=== PATIENT | female | born 1940 | race Caucasian/White ===

== ENCOUNTER → 2017-09-22 | Outpatient (CLI) | payer BC ==
[~2017-09-22] MED LIST: ALBUTEROL SULFAT4 MG; CARAFATE 1 GM TA1 G1 PO; CIPROFLOXACIN500 M1 PO; COMPAZINE10 MG PO; COZAAR 50 MG TA50 M2 PO; DETROL1 MG PO; DICLOFENAC SODI75 MG PO; EFFEXOR XR75 MG PO; EFFEXOR75 MG PO; ELIQUIS5 MG PO; FISHOIL PO; FLAGYL500 MG PO; GLUCOSAMINE PO; HYDROCHLOROTHIA25 M2 PO; IBUPROFEN 400400 M1 PO; KEFLEX500 MG PO; LEVOTHYROXIN0.025 MG PO; LOSARTAN-HCTZ1 EAC1 PO; MEDROLDOSEPACK PO; MOBIC15 MG PO; MULTIVITAMINS PO; NEXIUM40 MG; NORCO 5-325 TA1 EACH PO; OXYCODONE HCL10 MG PO; PERCOCET PO; PHENERGAN 25 MG25 M1 PO; PREDNISONE 10 M10 MG PO; PREDNISONE PO; PROTONIX 20 MG20 M1 PO; RED YEAST RICE600 MG PO; SYNTHROID75 MCG PO; TRANSDERM-SCOP1 EACH TRANSDERM; ULTRAM 50MG TAB50 MG PO; VESICARE PO; VESICARE10 M1 PO; ZOVIRAX30 GM TOP
[2017-09-22 16:07] LABS: CREATININE 1.2 mg/dL (0.6-1.3)
== END ==
LOC: M.LAB 15:42 → M.MRI 17:30
PROVIDERS: Nurse Practitioner Family
DX: M47.26 Other spondylosis with radiculopathy, lumbar region (principal); M51.16 Intervertebral disc disorders with radiculopathy, lumbar region; M46.06 Spinal enthesopathy, lumbar region; M48.061 Spinal stenosis, lumbar region without neurogenic claudication; Z85.9 Personal history of malignant neoplasm, unspecified

== ENCOUNTER → 2017-10-06 | Outpatient (CLI) | payer BC, OTHER ==
--- NOTE | 2017-10-12 16:41 | PAINCON ---
[address] [address] PAIN MANAGEMENT CONSULTATION Name: ABELARDO BAEZ Room: [facility] [place] [id number] Admission: 10/06/17 Attend Phys: Vinod Vanessa MD Discharge: Date of : 36 Report #: [id number] THIS REPORT FOR: //name// CC: Vinod Abdalla DATE OF SERVICE: 10/06/2017 CHIEF COMPLAINT: "Pain in my back. I recently had treatment for esophageal cancer." FOLLOWUP HISTORY: The patient is a 77-year-old female who has been referred to the pain clinic for evaluation of back pain. The patient states that she is noticing some worsening of her pain. It has gotten significantly worse over the last week. She was seen in the hospital. She was treated with chemotherapy and radiation. She was told that she has esophageal cancer. States that it was found because she was feeling sick. It was an accidental finding per her report. Notes that she has been "dealing with this cancer all summer long." Notes that it has taken a lot of out of her emotionally as well as physically. She has lost quite a bit of weight. Notes that pain is problematic when she is standing and doing activities of daily living such as folding clothes, doing dishes, laundry. Notes that the pain sometimes improves if she sits and rests her back up against the chair. Denies any trauma, denies any impact to the area. Denies any heavy lifting. Has not had shingles in that area. The patient states she has been given oxycodone. She has taken 5 mg tablets. When the pain is problematic, she has taken one. She has not taken more than one tablet at a time. She feels that the pain can rise to the level of an 8 to 10. Today, she feels it is 0.5. She is aware that it is present. Once the pain gets started, it can last for a number of hours. Difficult to decrease it with one oxycodone tablet. ALLERGIES: MIDAZOLAM. CURRENT MEDICATIONS: Acyclovir ointment, Eliquis 5 mg b.i.d., Hyzaar 100/25, oxycodone 5 mg tablets, VESIcare 10 mg, Effexor XR 75 mg. PAST MEDICAL HISTORY: Diabetes, hypertension, thyroid disease, joint disease/arthritis, esophageal cancer. PAST SURGICAL HISTORY: Appendectomy in 1958, oophorectomy at age 17, hysterectomy in 1976, esophagus surgery 08/27/2017. SOCIAL HISTORY: She is retired. REVIEW OF SYSTEMS: Generally good health, prior to this has noticed a significant weight loss as a result of this illness, chronic cough. Otherwise, [place] [address] PAIN MANAGEMENT CONSULTATION Name: ABELARDO BAEZ Room: [facility]#: [id number] Admission: 10/06/17 Attend Phys: Vinod Vanessa MD Discharge: Date of : 38 Report #: [id number] unremarkable. LABORATORY DATA: MRI of the lumbar spine dated 09/22/2017. 1. L3-L4, there is no significant disk bulge or protrusion identified. There is no significant central spinal canal or neural foraminal stenosis. There is quym-mg-emdvdntz bilateral facet arthrosis. 2. L4-L5, there is minimal posterior disk bulge. There is no significant central spinal canal stenosis. There is qwzedwpa-cf-pndtdu/bilateral facet arthrosis and spurring. There is minimal foraminal disk bulging. There is moderate medial bilateral neural foraminal stenosis due to facet spurring and foramen disk bulging. 3. L5-S1, there is a mild diffuse disk bulge. There is severe right and flbazrub-oa-zegxem left facet arthrosis. There is foraminal disk bulging and facet spurring resulting in tercipez-ko-yxjrxv medial bilateral neural foraminal stenosis with effacement of the undersurface of the exiting L5 nerve roots. 4. T12-L1, there is a mild diffuse disk bulge. There is no significant central spinal canal or neural foraminal stenosis. 5. At L1-L2, there is no significant disk bulge or protrusion identified. There is no significant central spinal canal or neural foraminal stenosis. PAIN CLINIC ASSESSMENT: 1. Osteoarthritis. The patient states that she is not being treated for osteoarthritis, but MRI shows some arthritic changes in the low back area. 2. Height 5 feet 2 inches, weight 126 pounds, BMI is 22.8. 3. Vital signs: Blood pressure is 124/65, heart rate 107, respiratory rate 16, room air saturation 96%, temperature 98.4, pain 0.5/10 depending on the activity, can rise to a level of 10 when it is problematic. 4. Fall risk. The patient has not fallen in the last 3 months. 5. Blood thinner. The patient is on a blood thinning medication Eliquis. 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 6. Hypertension. The patient is being treated for hypertension. 7. Opioid therapy greater than 6 weeks. The patient is not on opioid therapy. 8. Risk assessment tool. 9. Functional assessment tool. 10. Recreational drug use. The patient denies use of recreational drugs. 11. Tobacco: The patient denies use of tobacco. 12. Alcohol: The patient denies use of alcoholic beverages. PHYSICAL EXAMINATION: GENERAL: The patient is a well-developed, well-nourished white female. Appears her stated age. She is alert and oriented x 3. Speech is fluent. HEENT: Normocephalic, atraumatic. Extraocular muscles intact. Sclerae nonicteric. Mucous membranes are moist. No signs of alopecia. NECK: Good range of motion without bruits or adenopathy. HEART: Regular rate. S1, S2. LUNGS: Clear to auscultation without rhonchi [place] [address] PAIN MANAGEMENT CONSULTATION Name: SASHAABELARDO Room: [facility]#: [id number] Admission: 10/06/17 Attend Phys: Vinod Vanessa MD Discharge: Date of : 38 Report #: [id number] ABDOMEN: Nontender. MUSCULOSKELETAL: Without significant scoliosis, kyphosis or lordosis. Palpation in the area of the patient's bra line at approximately T8 through T10, the patient has some soreness and some irritation to the right paraspinous muscle palpation. There is some midline discomfort as well. Pain radiates out approximately 4-5 inches around the thoracic area. No signs of outbreak or rashes noted, no signs of trauma. Upper extremity muscle strength is judged to be 4+/5 in the upper muscle strain. Lower muscle strength is judged to be 5-/5 in the lower extremities. Jean sign is negative. The patient is able to stand up on her toes and walk back on her heels, is not having any radicular pain at this juncture. IMPRESSION: 1. Cancer pain/esophageal cancer status post radiation treatment and chemotherapy with back pain. 2. Diabetes. 3. Hypertension. 4. Thyroid disease. 5. Joint disease/arthritis. 6. Esophageal cancer. RECOMMENDATIONS: We discussed the treatment options with her. Possible complications of an injection into the back with local anesthetic and steroids were reviewed. The patient is having pain, which she rates as 1/2 today. Oftentimes, it can rise to the level of 10. Once it starts it becomes very difficult to combat. The patient took oxycodone. She only took one 5 mg tablet of time. I think oxycodone still has a good medication for this pain. We will give her 10 mg tablets. The patient will take one tablet if her pain starts to become problematic. In 1/2 hour, if her pain continues to be problematic, she will take a second 10 mg tablet and if after one hour, pain continues to be problematic, she can take a third. She will call us in a week and tell us how things are going. She will be given a Medrol Dosepak to take in the interim. May consider using the medication such as gabapentin. Given the possible complications and side effects of these types of medication, we will try to be conservative at this juncture and add additional medications and treatments as needed in the future. We would like to thank you for letting us participate in her care. We hope she continues to improve. <ELECTRONICALLY SIGNED> By: Vinod Vanessa MD 10/12/17 1641 [id number]. Collin Vanessa MD /gerry
== END ==
LOC: M.PC 03:23
DX: M54.5 Low back pain (principal); E11.9 Type 2 diabetes mellitus without complications; I10 Essential (primary) hypertension; C15.9 Malignant neoplasm of esophagus, unspecified; E07.9 Disorder of thyroid, unspecified

== ENCOUNTER 2017-10-16 16:07 | Inpatient (IN) | payer BC ==
[~2017-10-16] VITALS: Ht 157.5 cm; Wt 54.0 kg
--- NOTE | ~2017-10-16 | PROC ---
[address] [address] PROCEDURE REPORT Name: ABELARDO BAEZ Room: [address] IN ..#: [id number] Admission: 10/16/17 Attend Phys: Jess Cox MD Discharge: Date of : 38 Report #: [id number] THIS REPORT FOR: //name// For GI report, please see the Provation report in Perceptive 7 content. By: [id number] Records Staff DEVANTE /ELENA
[~2017-10-16 16:07] MED LIST changes: -CARAFATE 1 GM TA1 G1 PO; -COMPAZINE10 MG PO; -DETROL1 MG PO; -PROTONIX 20 MG20 M1 PO; -SYNTHROID75 MCG PO; -TRANSDERM-SCOP1 EACH TRANSDERM
[2017-10-16 16:08] VITALS: BP 205/94
[2017-10-16] MEDS ORDERED: CARAFATE 1 GM TA1 G1 PO (16:12)
[2017-10-16] MEDS ORDERED: SYNTHROID75 MCG PO (16:13)
[2017-10-16] MEDS ORDERED: DETROL1 MG PO (16:14)
[2017-10-16] MEDS ORDERED: PROTONIX 20 MG20 M1 PO (16:14)
[2017-10-16] MEDS ORDERED: COMPAZINE10 MG PO (16:14)
[2017-10-16 17:06] LABS: HEMATOCRIT 46.5 % (37.0-47.0); HEMOGLOBIN 15.2 gm/dL (12.0-15.0); MCH 28.6 pg (26.0-34.0); MCHC 32.7 g/dL (28.0-37.0); MCV 87.4 fL (80.0-100.0); MPV 6.8 fl. (7.2-11.1); NUCLEATED RBCS 0 /100WBC; PLATELET COUNT* 341 thou/uL (150-400); RBC 5.32 mil/uL (4.20-5.00); RDW-CV 14.9 % (10.5-14.5); WBC 5.9 thou/uL (4.0-11.0)
[2017-10-16 17:12] LABS: ANION GAP 14 mmol/L (7-16); BUN 18 mg/dL (7-18); CHLORIDE 96 mmol/L (98-107); CO2 25 mmol/L (21-32); CREATININE 0.8 mg/dL (0.6-1.3); GLUCOSE 138 mg/dL (70-99); POTASSIUM 3.3 mmol/L (3.5-5.1); SODIUM 135 mmol/L (136-145)
[2017-10-16 17:19] LABS: ALBUMIN 3.2 g/dL (3.4-5.0); ALKALINE PHOSPHATASE 98 U/L (46-116); LIPASE 60 U/L (73-393); SGOT 21 U/L (15-37); SGPT 19 U/L (30-65); TOTAL BILIRUBIN 0.6 mg/dL (<0.1-1.0); TROPONIN-I LEVEL <0.06 ng/mL (<0.06)
[2017-10-16 17:20] LABS: APTT 28.9 Seconds (25.0-31.3); PROTIME 10.6 Seconds (9.20-11.50)
[2017-10-16 17:25] LABS: ABSOLUTE LYMPHOCYTES 0.4 thou/uL (0.8-5.3); ABSOLUTE MONOCYTES 0.5 thou/uL (0.0-1.2); ABSOLUTE NEUTROPHILS 5.1 thou/uL (1.6-8.1); ATYPICAL LYMPHS 1 %; PLATELET ESTIMATE ADEQUATE
--- NOTE | 2017-10-16 18:41 | NUR ---
NINOSKA NOTIFIED UPON PT RETURN FROM CT. PT CONNECTED TO MONITOR AND 2 LITERS OF O2
[2017-10-16 19:04] VITALS: BP 173/89
[2017-10-16 20:25] VITALS: BP 197/91
[2017-10-17 00:42] VITALS: BP 189/87
--- NOTE | 2017-10-17 01:43 | NUR ---
ARRIVED FROM ER ALERT AND ORIENTED X4. DENIED PAIN OR NAUSEA AT THIS TIME. ASSESSMENT CHARTED. ORIENTED TO BED AND BED CONTROLS. CALL LIGHT WITHIN REACH.
[2017-10-17 04:03] LABS: HEMATOCRIT 42.1 % (37.0-47.0); HEMOGLOBIN 13.8 gm/dL (12.0-15.0); MCH 28.5 pg (26.0-34.0); MCHC 32.7 g/dL (28.0-37.0); MCV 87.3 fL (80.0-100.0); MPV 6.7 fl. (7.2-11.1); RBC 4.82 mil/uL (4.20-5.00); RDW-CV 14.5 % (10.5-14.5)
[2017-10-17 04:20] VITALS: BP 187/93
[2017-10-17 05:12] LABS: ALBUMIN 2.8 g/dL (3.4-5.0); CALCIUM 8.3 mg/dL (8.5-10.1); CREATININE 0.7 mg/dL (0.6-1.3); MAGNESIUM 1.5 mg/dL (1.8-2.4); TOTAL BILIRUBIN 0.4 mg/dL (<0.1-1.0); TOTAL PROTEIN 6.4 g/dL (6.4-8.2)
--- NOTE | 2017-10-17 08:01 | NUR ---
ALERT AND ORIENTED X4. DENIED NEED FOR PAIN OR NAUSEA MEDICATION. REMAINS ON O2 AT 2L/NC. UP TO BATHROOM WITH STAND BY ASSIST. CALL LIGHT WITHIN REACH.
[2017-10-17 08:10] VITALS: BP 175/73
[2017-10-17 16:00] VITALS: BP 171/74
--- NOTE | 2017-10-17 18:57 | NUR ---
PT ALERT AND ORIENTED X 4. PT COMPLAINS OF NAUSEA. PT ADMINISTERED PRN IV COMPAZINE. DENIES PAIN. PT HAS IVF @ 100MLS/HR. PT RECEIVED MAGNESIUM 800MG DOSE X 2 PER ELECTROLYTE PROTOCOL. PT UP WITH SBA X 1 WITH WALKER. WILL USE CALL LIGHT FOR ASSISTANCE. CALL LIGHT WITHIN REACH. HOURLY ROUNDS MAINTAINED. NURSING WILL CONTINUE TO MONITOR.
[2017-10-17 19:40] VITALS: BP 195/79
[2017-10-17 23:11] VITALS: BP 162/77
[2017-10-18 04:13] LABS: HEMATOCRIT 43.8 % (37.0-47.0); HEMOGLOBIN 14.3 gm/dL (12.0-15.0); MCH 28.8 pg (26.0-34.0); MCHC 32.8 g/dL (28.0-37.0); MCV 87.8 fL (80.0-100.0); RBC 4.98 mil/uL (4.20-5.00); RDW-CV 14.7 % (10.5-14.5); WBC 6.8 thou/uL (4.0-11.0)
[2017-10-18 04:19] VITALS: BP 194/95
[2017-10-18 04:25] LABS: ALBUMIN 3.1 g/dL (3.4-5.0); CALCIUM 8.5 mg/dL (8.5-10.1); CREATININE 0.7 mg/dL (0.6-1.3); MAGNESIUM 1.6 mg/dL (1.8-2.4); POTASSIUM 3.5 mmol/L (3.5-5.1); TOTAL BILIRUBIN 0.6 mg/dL (<0.1-1.0); TOTAL PROTEIN 7.3 g/dL (6.4-8.2)
--- NOTE | 2017-10-18 05:11 | NUR ---
ASSESSMENT COMPLETE. PT REPORTS NAUSEA, PARTIAL RELIEF FROM PRN NAUSEA MEDICATION. SCOPE PATCH PLACED BEHIND LEFT EAR. PT DENIED PAIN AT BEGINING OF SHIFT, BACK PAIN STARTED AROUND 0400, OXY IR GIVEN WITH RELIEF REPORTED. REPORTS DECREASED APPETITE. PT REPORTS SHE NOTICES NAUSEA WORSENS WITH BACK PAIN. MAG REPLACED PER PROTOCOL. PT IS ON ROOM AIR WITH [place] SATS. IV FLUIDS INFUSING. PT [facility], TURNS SELF IN BED. SEE ASSESSMENT AND VITALS FOR OTHER DETAILS. BED ALARM ON, CALL LIGHT WITHIN REACH. WILL CONTINUE PLAN OF CARE
[2017-10-18 07:45] VITALS: BP 175/89
--- NOTE | 2017-10-18 12:48 | EKG ---
[place] [address] ELECTROCARDIOGRAM REPORT Name: ABELARDO BAEZ Room: [address] ADM IN .R.#: [id number] Admission: 10/16/17 Attend Phys: Jess Cox MD Discharge: Date of : 38 Report #: [id number] THIS REPORT FOR: //name// [facility] ED Test Date: 2017-10-16 Test Time: 16:51:39 Pat Name: ABELARDO BAEZ Department: Room: [facility] Gender: F Administrative Underwriter: ANJEL : 1940 Requested By: Marie Yanez Order Number: [id number] MD: Jerad Erwin Measurements Intervals [place] Rate: 93 P: 42 W[place]: 138 QRS: -44 QRSD: 81 T: 2 QT: 392 QTc: 488 Interpretive Statements Sinus rhythm Probable left atrial enlargement Left anterior fascicular block Borderline prolonged QT interval Compared to ECG 11/04/2010 19:56:31 Left anterior fascicular block now present Sinus tachycardia no longer present Myocardial infarct finding no longer present Electronically Signed On 10-18-2017 12:47:57 CDT by Jerad Erwin [email or web address] <ELECTRONICALLY SIGNED> By: Jerad Erwin MD, FAC 10/18/17 1247 1651 1651 Jerad Erwin MD, [facility] /EPI
--- NOTE | 2017-10-18 14:19 | NUR ---
SPOKE WITH PT. SHE WAS ALERT AND ORIENTED. SHE SAID SHE LIVES ALONE. DOES NOT USE ANY DME. SHE SAID HER FAMILY IS SUPPORTIVE. SHE RECENTLY JUST FINISHED HOME HEALTH SINCE HAVING SURGERY FOR ESOPHAGEAL CANCER BEGINNING OF SUMMER. SHE CANNOT REMEMBER NAME OF AGENCY,HOWEVER. SHE SAID SHE FEELS A LITTLE BETTER BUT STILL CAN'T EAT ANYTHING. THIS CAME ON ALL OF A SUDDEN. CM WILL FOLLOW.
[2017-10-18 16:41] VITALS: BP 178/94
--- NOTE | 2017-10-18 18:52 | NUR ---
PT ALERT AND ORIENTED X 4. PT HAD IV INFILTRATE X 2. IV PLACED IN RIGHT WRIST WITH FLUIDS INFUSING AT 100 MLS/HR. PT RECEIVED PO MEDICATION FOR PAIN RELIEF. INDICATED MINIMAL NAUSEA. ABLE TO AMBULATE WITH SBA X 1. VS STABLE. HOURLY ROUNDS MAINTAINED. WILL USE CALL LIGHT FOR ASSISTANCE. CALL LIGHT WITHIN REACH. NURSING WILL CONTINUE TO MONITOR.
[2017-10-18 19:36] VITALS: BP 119/72
[2017-10-19 04:28] LABS: CALCIUM 8.4 mg/dL (8.5-10.1); CREATININE 0.8 mg/dL (0.6-1.3); MAGNESIUM 1.8 mg/dL (1.8-2.4); POTASSIUM 3.5 mmol/L (3.5-5.1)
--- NOTE | 2017-10-19 05:08 | NUR ---
ASSESSMENT COMPLETE. PT SLEPT GOOD THROUGH THE NIGHT. PRN PAIN MEDICATIONS GIVEN ONCE. NO NAUSEA MEDICATION NEEDED. PT HAS SCOPE PATCH. PT NPO SINCE MIDNIGHT FOR EGD TODAY. PT IS ON ROOM AIR WITH [place] SATS. IV FLUIDS INFUSING. PT IS FALL RISK, BED ALARM ON. UP STANDBY ASSIST. SEE ASSESSMENT AND VITALS FOR OTHER DETAILS. CALL LIGHT WITHIN REACH, WILL CONTINUE PLAN OF CARE
[2017-10-19 07:30] VITALS: BP 128/50
[2017-10-19 08:30] VITALS: BP 128/50
[2017-10-19 11:45] VITALS: BP 127/63
[2017-10-19 13:04] VITALS: BP 128/50; BP 130/82
--- NOTE | 2017-10-19 17:39 | NUR ---
PATIENT IS ALERT AND ORIENTED VERY PLEASANT UP WITH STAND BY IN ROOM. TOLERATED EGD WELL TODAY, STARTED CLEAR LIQUIDS AND TOLERATED WELL. PATIENT HAS HAD NO COMPLAINTS OF PAIN TODAY REFUSED PAIN MEDS TODAY. VITAL SIGNS ARE STABLE ON ROOM AIR, CALL LIGHT IS IN REACH WILL CONTINUE TO MONITOR.
[2017-10-19 19:25] VITALS: BP 150/72
[2017-10-20 04:34] LABS: HEMATOCRIT 42.5 % (37.0-47.0); MCH 28.6 pg (26.0-34.0); MCV 86.7 fL (80.0-100.0); MPV 7.1 fl. (7.2-11.1); RBC 4.9 mil/uL (4.20-5.00); WBC 6.1 thou/uL (4.0-11.0)
[2017-10-20 05:32] LABS: ALBUMIN 3.1 g/dL (3.4-5.0); CALCIUM 8.5 mg/dL (8.5-10.1); CREATININE 0.7 mg/dL (0.6-1.3); MAGNESIUM 1.6 mg/dL (1.8-2.4); POTASSIUM 3.2 mmol/L (3.5-5.1); TOTAL BILIRUBIN 0.6 mg/dL (<0.1-1.0); TOTAL PROTEIN 6.7 g/dL (6.4-8.2)
--- NOTE | 2017-10-20 05:51 | NUR ---
ASSESSMENT COMPLETE. PT GIVEN NAUSEA MEDICATION ONCE DURING THE NIGHT. REFUSED PAIN MEDICATION. PT SLEPT THROUGH THE NIGHT. PT REPORTED HERPES RASH ON RIGHT BUTTOCK THAT SHE STATES HAS A HISTORY OF AND TAKES ACYCLOVIR AT HOME. NOTIFIED AND ACYCLOVIR STARTED. PT IS UP STANDBY TO BATHROOM. PT HAS IV SALINE LOCKED. SEE ASSESSMENT AND VITALS FOR OTHER DETAILS. BED ALARM ON, CALL LIGHT WITHIN REACH. WILL CONTINUE PLAN OF CARE
[2017-10-20] MEDS ORDERED: OXYCODONE HCL10 MG PO (08:23)
[2017-10-20 08:40] VITALS: BP 127/57; BP 150/72
[2017-10-20] MEDS ORDERED: TRANSDERM-SCOP1 EACH TRANSDERM (09:20)
--- NOTE | 2017-10-20 16:00 | NUR ---
PATIENT DISCHARGED TO HOME. DISCHARGE PAPERS REVIEWED AND SIGNED. PRESCRIPTION AND INFORMATION SHEETS GIVEN. IV REMOVED. PATIENT DENIES ANY PAIN OR NAUSEA. PATIENT TAKEN BY WHEELCHAIR TO EXIT. LEFT WITH DAUGHTER.
--- NOTE | 2017-11-10 13:22 | CON ---
[address] [address] CONSULTATION Name: ABELARDO BAEZ Room: [address] IN .R.#: [id number] Admission: 10/16/17 Attend Phys: Jess Cox MD Discharge: 10/20/17 Date of : 36 Report #: [id number] THIS REPORT FOR: //name// CC: Jess Abdalla DATE OF SERVICE: 10/18/2017 REASON FOR CONSULTATION: Nausea, vomiting. Consult placed by Dr. Gogo Cox. HISTORY OF PRESENT ILLNESS: This is a very pleasant 77-year-old female with past medical history of esophageal adenocarcinoma, status post esophagectomy and gastric pull-up surgery in July, was presenting with nausea and vomiting for the last 2 days. The patient reports that abruptly about 2 days back, she began developing nausea and vomiting. She developed several episodes of emesis throughout the day and night every 1-2 hours. She reports some epigastric discomfort with recurrent episodes of nausea and dry heaving, but denies any specific episode of abdominal pain. She denies any fevers, chills or diarrhea. The patient does report a 40-pound weight loss since her diagnosis, 10 pounds of which have come following the surgery. Although, the patient did have some difficulty with swallowing liquids immediately after the postsurgical period, she did relatively okay until this current episode. PAST MEDICAL HISTORY: As mentioned before, patient has history of esophageal adenocarcinoma. Additionally, she has a history of diabetes and hypertension. PAST SURGICAL HISTORY: The patient has history of oophorectomy, appendectomy, hysterectomy and underwent esophagectomy on 08/06/2017. FAMILY HISTORY: The patient's brother was diagnosed with Hodgkin's lymphoma. There is no family history of esophageal adenocarcinoma. SOCIAL HISTORY: The patient quit smoking in 1970, prior to that had a 54-ciqt-dbyx history of smoking. She denies alcohol or recreational drug use and lives alone. REVIEW OF SYSTEMS: A comprehensive 10-point review of systems is negative except for what was mentioned above. PHYSICAL EXAMINATION: VITAL SIGNS: Temperature 36.17, pulse rate 82, respirations 20, blood pressure 175/89. GENERAL: The patient is alert, awake, oriented x 3 and is in no acute distress. HEENT: Pupils are equal, round, reactive to light and accommodation. Muc[place] [address] CONSULTATION Name: ABELARDO BAEZ Room: [address]#: [id number] Admission: 10/16/17 Attend Phys: Jess Cox MD Discharge: 10/20/17 Date of : 38 Report #: [id number] NECK: Supple. There is no congestion. There is no supraclavicular lymphadenopathy. CARDIOVASCULAR: Rate and rhythm regular. S1, S2 present. LUNGS: Clear to auscultation bilaterally. ABDOMEN: Midline incision is seen related to the esophagectomy. Abdomen is soft. There is no tenderness. There is no organomegaly. Bowel sounds are present. EXTREMITIES: Warm, well perfused. There is no edema. SKIN: Warm and dry. NEUROLOGIC: No focal neurological deficit. LABORATORY DATA: Hemoglobin 14.3, hematocrit 43.8, platelet count 337, WBC count 6.81, sodium 134, potassium 3.5, chloride 98, bicarbonate 29, BUN 10, creatinine 0.7, magnesium 1.6. IMAGING: Abdominal CT without IV contrast, apparent changes of gastric pull through procedure. There is thickening of the tissue surrounding the stomach. No definite recent mass lesion is seen. Stable small left pleural effusion. Gallbladder was hyperdense compared with vicarious excretion of intravenous contrast previous day. ASSESSMENT AND PLAN: This is a pleasant 77-year-old female with past medical history of esophageal adenocarcinoma, status post esophageal resection and gastric pull-up on 08/06/2017 who is presenting with acute onset of nausea and vomiting. Nausea and vomiting. There is some evidence of thickening around the gastric wall on CT. We will proceed with EGD to rule out mucosal disease. The patient can be on clear liquids today and needs to be n.p.o. past midnight. Further recommendations will be based on the results of the EGD. The patient is already on Protonix b.i.d., which I will continue for now. <ELECTRONICALLY SIGNED> By: Everette Rodríguez MD 11/10/17 1322 1531 [id number] Rodríguez MD /nt
== END 2017-10-20 16:00 | disposition home or self-care (01) | DRG 866 ==
LOC: M.ERS 16:07 → M.ORTHSURG 18:40 → M.TBA-ER 18:40 → M.ORTHSURG 20:25
PROVIDERS: Personal Emergency Response Attendant; ADMIT Internal Medicine
PROC: 0DJ08ZZ Inspection of Upper Intestinal Tract, Via Natural or Artificial Opening Endoscopic (ICD-10-PCS; principal; 2017-10-19)
DX: B34.9 Viral infection, unspecified (principal); E44.0 Moderate protein-calorie malnutrition; D68.9 Coagulation defect, unspecified; E86.0 Dehydration; I16.0 Hypertensive urgency; I10 Essential (primary) hypertension; M10.9 Gout, unspecified; G89.29 Other chronic pain; M54.9 Dorsalgia, unspecified; M54.2 Cervicalgia; Z90.49 Acquired absence of other specified parts of digestive tract; Z85.01 Personal history of malignant neoplasm of esophagus; Z79.899 Other long term (current) drug therapy; Z90.710 Acquired absence of both cervix and uterus; Z88.8 Allergy status to other drugs, medicaments and biological substances; Z87.891 Personal history of nicotine dependence; Z68.21 Body mass index [BMI] 21.0-21.9, adult

== ENCOUNTER → 2017-12-20 | Outpatient (CLI) | payer BC ==
[~2017-12-20] MED LIST changes: +CARAFATE 1 GM TA1 G1 PO; +COMPAZINE10 MG PO; +DETROL1 MG PO; +PROTONIX 20 MG20 M1 PO; +SYNTHROID75 MCG PO; +TRANSDERM-SCOP1 EACH TRANSDERM
== END ==
LOC: M.MRI 13:03
DX: I67.82 Cerebral ischemia (principal); R41.89 Other symptoms and signs involving cognitive functions and awareness; Z94.9 Transplanted organ and tissue status, unspecified

== ENCOUNTER 2018-12-20 20:03 | Emergency (ER) | payer BC ==
[~2018-12-20] VITALS: Ht 157.5 cm; Wt 46.7 kg
[2018-12-20] MEDS ORDERED: OMEPRAZOLE 20 M20 M1 PO (20:28)
[2018-12-20 21:43] VITALS: BP 141/77
== END 2018-12-20 21:44 | disposition home or self-care (01) ==
LOC: M.ERS 20:03
DX: S61.213A Laceration without foreign body of left middle finger without damage to nail, initial encounter (principal); S61.215A Laceration without foreign body of left ring finger without damage to nail, initial encounter; I10 Essential (primary) hypertension; M10.9 Gout, unspecified; Z85.01 Personal history of malignant neoplasm of esophagus; Z88.8 Allergy status to other drugs, medicaments and biological substances; Z90.710 Acquired absence of both cervix and uterus; Z90.49 Acquired absence of other specified parts of digestive tract; W26.8XXA Contact with other sharp object(s), not elsewhere classified, initial encounter; Y93.89 Activity, other specified; Y92.89 Other specified places as the place of occurrence of the external cause; Y99.8 Other external cause status